=== PATIENT | female | born 1965 | race Caucasian/White ===

== ENCOUNTER 2024-11-14 16:47 | Emergency (ER) | payer SELFPAY ==
[2024-11-14 16:55] VITALS: BP 110/74; PULSE 98; TEMP 37; O2SAT 94; BMI 23.0
--- NOTE | 2024-11-14 17:12 | ED_ITS ---
HPI HPI - General Adult General Chief complaint: Shortness of Breath/Dyspnea Stated complaint: SOB Time Seen by Provider: 11/14/24 16:51 Source: patient Mode of arrival: walk-in Limitations: no limitations History of Present Illness HPI narrative: 59-year-old female presents to the emergency department for cough and wheezing. She has had those symptoms for about 2 weeks. For 2 weeks before that she had GI symptoms, nausea and vomiting but that resolved. She is not coughing up any phlegm and she is using her inhaler at home. She has a doctor's appointment in the morning with her family physician. No documented fever. Related Data Previous Rx's ?Medication ?Instructions ?Recorded albuterol sulfate 90 mcg/actuation 2 inh inhalation Q4H PRN shortness 11/14/24 aerosol inhaler of breath or wheezing #8.5 grams azithromycin 250 mg tablet See Rx Instructions PO .COMPLEX #6 11/14/24 (Zithromax Z-Louis) tabs prednisone 10 mg tablet See Rx Instructions .Route 11/14/24 .COMPLEX #30 tabs Allergies Allergy/AdvReac Type Severity Reaction Status Date / Time hydromorphone (From Dilaudid) Allergy Difficulty Verified 11/14/24 16:55 Breathing sulfamethoxazole (From Allergy Rash Verified 11/14/24 16:55 Bactrim) trimethoprim (From Bactrim) Allergy Rash Verified 11/14/24 16:55 Opioid HPI Opioid Management Most Recent Opioid Data: No Data to Display Review of Systems ROS Narrative A ten point review of systems is negative except as noted above. PFSH PFSH Social History Little interest or pleasure in doing things: not at all Feeling down, depressed, or hopeless: not at all Exam Narrative Exam Narrative: Nurses note and vital signs reviewed and patient is not hypoxic. General: The patient appears in no apparent distress. Skin: Warm, dry, no pallor noted. There is no rash noted. Head: Normocephalic, atraumatic Eye: Normal conjunctiva, no drainage, Ears, Nose, Mouth, and Throat: oral mucosa is moist. Nares patent. Cardiovascular: Regular Rate and Rhythm Respiratory: She coughs frequently with deep inhalations. There is minimal end expiratory wheeze present Back: non-tender GI: Soft and nontender Musculoskeletal: The patient has no evidence of calf tenderness, no pitting edema, symmetrical pulses noted bilaterally Neurological: A&O, normal speech Psychiatric: Cooperative Constitutional Vital Signs, click to edit/add: Last Vital Signs Temp 98.6 F 11/14/24 16:55 Pulse 88 11/14/24 17:54 Resp 18 11/14/24 16:55 BP 110/74 11/14/24 16:55 Pulse Ox 95 11/14/24 17:54 O2 Del Method Room Air 11/14/24 17:54 Course Vital Signs Vital signs: Vital Signs Temperature 98.6 F 11/14/24 16:55 Pulse Rate 98 H 11/14/24 16:55 Respiratory Rate 18 11/14/24 16:55 Blood Pressure 110/74 11/14/24 16:55 Pulse Oximetry 94 L 11/14/24 16:55 Oxygen Delivery Method Room Air 11/14/24 16:55 Temperature 98.6 F 11/14/24 16:55 Pulse Rate 88 11/14/24 17:54 Respiratory Rate 18 11/14/24 16:55 Blood Pressure 110/74 11/14/24 16:55 Pulse Oximetry 95 11/14/24 17:54 Oxygen Delivery Method Room Air 11/14/24 17:54 Medical Decision Making MDM Narrative Medical decision making narrative: Left lower lobe pneumonia is identified. She does not require admission to the hospital and should be discharged home on Zithromax, prednisone, and albuterol. Treatment diagnosis and follow-up were discussed with the patient. COVID and influenza tests were negative. Lab Data Lab results reviewed: Yes I reviewed the patient's lab results Labs: Lab Results 11/14/24 Range/Units 17:20 Influenza Type A Ag Negative Influenza Type B Ag Negative SARS-CoV-2 Ag (CV2AG) Negative (NEGATIVE) Imaging Data Chest x-ray: Radiologist's impression: Left lower lobe atelectasis/airspace disease Discharge Plan Discharge Chief Complaint: Shortness of Breath/Dyspnea Clinical Impression: Left lower lobe pneumonia Patient Disposition: Home, Self-Care Time of Disposition Decision: 18:10 Condition: Good Mode of Transportation: Private Vehicle Prescriptions / Home Meds: New prednisone 10 mg tablet See Rx Instructions .ROUTE .COMPLEX Qty: 30 0RF Rx Instructions: 4 by mouth daily for three days then 3 by mouth daily for three days then 2 by mouth daily for three days then 1 by mouth daily for three days azithromycin [Zithromax Z-Louis] 250 mg tablet See Rx Instructions .ROUTE .COMPLEX Qty: 6 0RF Rx Instructions: For 250 mg dose pack: take 500 mg today (day 1), then 250 mg for 4 days (days 2-5) albuterol sulfate 90 mcg/actuation HFA aerosol inhaler 2 inh inhalation Q4H PRN (Reason: shortness of breath or wheezing) Qty: 8.5 0RF Print Language: Wallisian Instructions: Community Acquired Pneumonia (ED) Referrals: Physician,Non-Staff, MD [Primary Care Provider] - 1 week
[2024-11-14] MEDS: METHYLPREDNISOLONE SOD SUCC PF 125 MG/2 ML VIAL IM (17:36)
[2024-11-14 17:44] LABS: Influenza Virus A Antigen Negative; Influenza Virus B Antigen Negative; Internal Control Within Normal Limits; SARS-CoV-2 Ag NEGATIVE (NEGATIVE)
[2024-11-14] MEDS: ALBUTEROL SULFATE 2.5 MG/3 ML VIAL NEB IH (17:53)
[2024-11-14 17:54] VITALS: PULSE 88; O2SAT 95
== END 2024-11-14 18:15 | disposition home or self-care (01) ==
PROVIDERS: Emergency Provider Emergency Medicine
DX: J18.9 Pneumonia, unspecified organism (principal)
CPT/HCPCS: 71045; 87804; 87811; 94640; 96372; 99285; J2919